=== PATIENT | female | born 1945 | race Hispanic/Latino ===

== ENCOUNTER → 2017-04-05 | Outpatient (CLI) | payer OTHER | END | disposition home or self-care (01) | LOC: RAH 11:07 | PROVIDERS: ATTEND Family Medicine | DX: Z12.31 Encounter for screening mammogram for malignant neoplasm of breast (principal) | CPT/HCPCS: 77067 ==

== ENCOUNTER → 2018-08-20 | Outpatient (CLI) | payer OTHER | END | disposition home or self-care (01) | LOC: RAH 15:07 | PROVIDERS: ATTEND Family Medicine | DX: Z12.31 Encounter for screening mammogram for malignant neoplasm of breast (principal) | CPT/HCPCS: 77067 ==

== ENCOUNTER → 2019-09-19 | Outpatient (CLI) | payer OTHER ==
[~2019-09-19] MED LIST: IOHEXOL 350 MG/ML 100ML INFUS..BTL IV ONE
== END | disposition home or self-care (01) ==
LOC: RAH 08:18
PROVIDERS: ATTEND Family Medicine
DX: R10.9 Unspecified abdominal pain (principal); J98.11 Atelectasis; K40.20 Bilateral inguinal hernia, without obstruction or gangrene, not specified as recurrent; I70.90 Unspecified atherosclerosis
CPT/HCPCS: 74178; Q9967

== ENCOUNTER → 2019-12-18 | Outpatient (CLI) | payer OTHER | END | disposition home or self-care (01) | LOC: RAH 08:14 | PROVIDERS: ATTEND Family Medicine | DX: Z12.31 Encounter for screening mammogram for malignant neoplasm of breast (principal) | CPT/HCPCS: 77067 ==

== ENCOUNTER 2021-08-04 20:45 | Emergency (ER) | payer MEDICARE ==
[2021-08-04 22:22] VITALS: BP 156/94
[2021-08-04] MEDS ORDERED: LORAZEPAM 2 MG/ML 1 ML VIAL IVP ONE (22:30)
== END 2021-08-04 23:57 | disposition home or self-care (01) ==
LOC: EDH 20:45
DX: S16.1XXA Strain of muscle, fascia and tendon at neck level, initial encounter (principal); E11.9 Type 2 diabetes mellitus without complications; F41.9 Anxiety disorder, unspecified; I10 Essential (primary) hypertension; Z88.0 Allergy status to penicillin; X58.XXXA Exposure to other specified factors, initial encounter; Y93.89 Activity, other specified; Y92.89 Other specified places as the place of occurrence of the external cause; Y99.8 Other external cause status
CPT/HCPCS: 84484; 93005; 96374; 99284; J2060

== ENCOUNTER → 2022-05-09 | Outpatient (CLI) | payer MEDICARE | END | disposition home or self-care (01) | LOC: RAH 14:41 | PROVIDERS: ATTEND Family Medicine | DX: Z12.31 Encounter for screening mammogram for malignant neoplasm of breast (principal) | CPT/HCPCS: 77067 ==

== ENCOUNTER 2022-10-11 10:20 | Emergency (ER) | payer MEDICARE ==
[~2022-10-11] VITALS: Ht 149.9 cm; Wt 81.6 kg
[2022-10-11 11:21] LABS: HEMATOCRIT 40.1 % (36-48); MEAN CORPUSCULAR HEMOGLOBIN 30.4 pg (27.0-33.0); MEAN CORPUSCULAR HGB CONC 33.9 g/dL (32.0-36.0); MEAN CORPUSCULAR VOLUME 89.7 fL (79-99); PLATELET COUNT (AUTO) 208 K/uL (130-400); RED BLOOD CELL COUNT(AUTO) 4.47 MIL/uL (4.00-5.50); RED CELL DISTRIBUTION WIDTH 13.2 % (11.0-15.5); WHITE BLOOD COUNT (AUTO) 5.9 K/uL (4.8-10.8)
[2022-10-11 11:32] LABS: CREATININE 0.9 mg/dL (0.5-1.5); POTASSIUM 3.9 mmol/L (3.5-5.1)
[2022-10-11 11:36] LABS: ALBUMIN 3.7 g/dL (3.5-5.0); BILIRUBIN,TOTAL 0.6 mg/dL (0.2-1.0); TOTAL PROTEIN, SERUM 7.4 g/dL (6.0-8.3)
[2022-10-11 11:47] LABS: BAND NEUTROPHILS % (MANUAL) 1 % (0-2); BASOPHILS % (MANUAL) 4 % (0-2); EOSINOPHILS % (MANUAL) 6 % (1-6); LYMPHOCYTES % (MANUAL) 40 % (22-44); MAN.DIFF COMMENT-IMPRESSION MANUAL DIFFERENTIAL; MONOCYTES % (MANUAL) 6 % (2-9); PLATELET MORPHOLOGY COMMENT ADEQUATE; SEGMENTED NEUTROPHILS % 43 % (40-70); TOTAL CELLS COUNTED 100; WBC MORPHOLOGY CONSISTENT W/DIFF
[2022-10-11] MEDS ORDERED: CYCLOBENZAPRINE HCL 10 MG TABLET PO ONE (13:30)
[2022-10-11] MEDS ORDERED: ACETAMINOPHEN 500 MG TABLET PO ONE (13:30)
[2022-10-11 14:01] VITALS: BP 162/82; PULSE 72; RESP 16; O2SAT 98
[2022-10-11 14:52] LABS: APPEARANCE,URINE CLOUDY (CLEAR); BILIRUBIN,URINE NEGATIVE (NEGATIVE); COLOR,URINE LIGHT-YELLOW (YELLOW); GLUCOSE, URINE (UA) NEGATIVE (NEGATIVE); KETONES,URINE NEGATIVE (NEGATIVE); LEUKOCYTE ESTERASE ,URINE 25 Leu/uL (NEGATIVE); NITRATE,URINE NEGATIVE (NEGATIVE); OCCULT BLOOD,URINE NEGATIVE (NEGATIVE); PH,URINE 6.5 (5.0-8.0); PROTEIN,URINE NEGATIVE (NEGATIVE); UROBILINOGEN,URINE 0.2 mg/dL (0.2-1.0)
[2022-10-11 14:53] LABS: ADD UA MICROSCOPIC YES
[2022-10-11 15:09] LABS: BACTERIA,URINE MOD /HPF (None Seen); MUCUS,URINE FEW LPF (None Seen); SQUAMOUS EPITHELIAL CELL,UR MANY /HPF (0-2)
[2022-10-11] MEDS ORDERED: SULF1TAB42 PO (15:26)
[2022-10-11] MEDS ORDERED: CYCL10TA16 PO (15:47)
== END 2022-10-11 15:54 | disposition home or self-care (01) ==
LOC: EDH 10:20
DX: N39.0 Urinary tract infection, site not specified (principal); I10 Essential (primary) hypertension; E78.00 Pure hypercholesterolemia, unspecified; Z88.0 Allergy status to penicillin; Z90.49 Acquired absence of other specified parts of digestive tract
CPT/HCPCS: 36415; 80053; 81001; 84484; 85025; 87077; 87088; 87186; 93005

== ENCOUNTER → 2023-02-13 | Outpatient (CLI) | payer MEDICARE ==
[~2023-02-13] MED LIST changes: +CYCL10TA16 PO; -IOHEXOL 350 MG/ML 100ML INFUS..BTL IV ONE; +SULF1TAB42 PO
[2023-02-13 15:48] LABS: BASOPHILS # (AUTO) 0.06 K/uL (0.00-0.20); BASOPHILS % (AUTO) 0.7 % (0.0-5.0); EOSINOPHILS # (AUTO) 0.19 K/uL (0.00-0.70); EOSINOPHILS % (AUTO) 2.3 % (0.0-8.0); HEMATOCRIT 39.3 % (36-48); IMMATURE GRANULOCYTE ABSOLUTE 0.03 K/uL (0-1); LYMPHOCYTES # (AUTO) 1.9 K/uL (1.0-4.8); LYMPHOCYTES % (AUTO) 23.4 % (21.0-51.0); MEAN CORPUSCULAR HEMOGLOBIN 30.6 pg (27.0-33.0); MEAN CORPUSCULAR HGB CONC 32.8 g/dL (32.0-36.0); MEAN CORPUSCULAR VOLUME 93.1 fL (79-99); MONOCYTES # (AUTO) 0.7 K/uL (0.1-1.0); MONOCYTES % (AUTO) 8.8 % (3.0-13.0); NEUTROPHILS # (AUTO) 5.3 K/uL (1.8-7.7); NEUTROPHILS % (AUTO) 64.4 % (40.0-77.0); PLATELET COUNT (AUTO) 222 K/uL (130-400); RED BLOOD CELL COUNT(AUTO) 4.22 MIL/uL (4.00-5.50); RED CELL DISTRIBUTION WIDTH 12.8 % (11.0-15.5); WHITE BLOOD COUNT (AUTO) 8.2 K/uL (4.8-10.8)
[2023-02-13 16:03] LABS: ALBUMIN 3.3 g/dL (3.5-5.0); BILIRUBIN,TOTAL 0.4 mg/dL (0.2-1.0); TOTAL PROTEIN, SERUM 7.2 g/dL (6.0-8.3)
== END | disposition home or self-care (01) ==
LOC: LAB 15:00
PROVIDERS: ATTEND Internal Medicine Gastroenterology
DX: R10.32 Left lower quadrant pain (principal)
CPT/HCPCS: 36415; 80053; 85025

== ENCOUNTER → 2023-02-16 | Outpatient (CLI) | payer MEDICARE ==
[~2023-02-16] MED LIST changes: +IOHEXOL-350 75 ML VIAL IV ONE
== END | disposition home or self-care (01) ==
LOC: RAH 08:05
PROVIDERS: ATTEND Internal Medicine Gastroenterology
DX: K40.20 Bilateral inguinal hernia, without obstruction or gangrene, not specified as recurrent (principal); R10.32 Left lower quadrant pain; K57.90 Diverticulosis of intestine, part unspecified, without perforation or abscess without bleeding; N85.8 Other specified noninflammatory disorders of uterus; M47.815 Spondylosis without myelopathy or radiculopathy, thoracolumbar region; I70.90 Unspecified atherosclerosis
CPT/HCPCS: 74178; Q9967

== ENCOUNTER 2023-05-08 07:12 | Day surgery (SDC) | payer MEDICARE ==
[2023-05-04 15:49] LABS: BASOPHILS # (AUTO) 0.06 K/uL (0.00-0.20); BASOPHILS % (AUTO) 0.8 % (0.0-5.0); EOSINOPHILS # (AUTO) 0.25 K/uL (0.00-0.70); EOSINOPHILS % (AUTO) 3.5 % (0.0-8.0); HEMATOCRIT 40.3 % (36-48); IMMATURE GRANULOCYTE ABSOLUTE 0.02 K/uL (0-1); LYMPHOCYTES # (AUTO) 2.4 K/uL (1.0-4.8); MEAN CORPUSCULAR HEMOGLOBIN 30.6 pg (27.0-33.0); MEAN CORPUSCULAR VOLUME 92.6 fL (79-99); MONOCYTES # (AUTO) 0.6 K/uL (0.1-1.0); MONOCYTES % (AUTO) 8.1 % (3.0-13.0); NEUTROPHILS # (AUTO) 3.9 K/uL (1.8-7.7); NEUTROPHILS % (AUTO) 54.3 % (40.0-77.0); PLATELET COUNT (AUTO) 204 K/uL (130-400); RED BLOOD CELL COUNT(AUTO) 4.35 MIL/uL (4.00-5.50); RED CELL DISTRIBUTION WIDTH 12.7 % (11.0-15.5); WHITE BLOOD COUNT (AUTO) 7.1 K/uL (4.8-10.8)
[2023-05-04 16:02] VITALS: BP 154/80; PULSE 84; RESP 15
[2023-05-04 16:14] LABS: CREATININE 0.9 mg/dL (0.5-1.5); POTASSIUM 3.8 mmol/L (3.5-5.1)
[2023-05-08] VITALS (21 sets, daily range): BP systolic 100–139; BP diastolic 54–81; PULSE 64–80; RESP 11–19
[~2023-05-08] VITALS: Ht 152.4 cm; Wt 83.9 kg
[~2023-05-08 07:12] MED LIST changes: +0.9%NACL 1000ML 1,000 ML IV SCH; +AMLO-257 PO; +ATOR40TA69 PO; +CITA10TA89 PO; +CLINDAMYCIN IVPB 900MG/50ML 50 ML IV SCH; +CLON0.5T4 PO; -CYCL10TA16 PO; -IOHEXOL-350 75 ML VIAL IV ONE; +LOSA50TA64 PO; +METF-444 PO; -SULF1TAB42 PO
[2023-05-08] MEDS: CLINDAMYCIN IVPB 900MG/50ML 50 ML IV ONE (08:19)
[2023-05-08] MEDS: 0.9%NACL 1000ML 1,000 ML IV ONE (08:20)
[2023-05-08] MEDS ORDERED: ONDANSETRON 4MG INJ ONE (09:10)
[2023-05-08] MEDS ORDERED: PROPOFOL 10 MG/ML 20ML VIAL IV ONE (09:10)
[2023-05-08] MEDS ORDERED: ROCURONIUM BROMIDE 10MG/1ML 5ML VL ONE ×2 (09:11→10:28)
[2023-05-08] MEDS ORDERED: MIDAZOLAM HCL 1 MG/ML 2ML VIAL ONE (09:11)
[2023-05-08] MEDS ORDERED: FENTANYL CITRATE PF 50 MCG/1 ML 2ML VIAL ONE (09:11)
[2023-05-08] MEDS ORDERED: BUPIVACAINE/PF 0.25% 10ML VIAL IJ ONE (09:16)
[2023-05-08] MEDS ORDERED: LIDOCAINE HCL 1% 20 ML VIAL ONE (09:16)
[2023-05-08] MEDS ORDERED: BUPIVACAINE/PF 0.25% 30ML VIAL IJ ONE (09:17)
[2023-05-08] MEDS ORDERED: DEXAMETHASONE SOD PHOSPHATE 10MG/ML 1ML VIAL ONE (09:26)
[2023-05-08] MEDS ORDERED: PHENYLEPHRINE HCL 10 MG/ML 1ML VIAL IV ONE ×2 (10:22→10:25)
[2023-05-08] MEDS ORDERED: EPHEDRINE SULFATE 50 MG/ML AMPULE ONE (10:50)
[2023-05-08] MEDS ORDERED: NEOSTIGMINE METHYLSULFATE 1MG/ML IV ONE (11:29)
[2023-05-08] MEDS ORDERED: GLYCOPYRROLATE 0.2 MG/ML 5 ML VIAL ONE (11:29)
[2023-05-08] MEDS: ONDANSETRON 4MG INJ ONE (13:32)
[2023-05-08] MEDS: ACETAMINOPHEN 1,000 MG/100 ML VIAL IV ONE (13:32)
[2023-05-08] MEDS: MEPERIDINE-PF 25 MG/ML SYG ONE (13:32)
== END 2023-05-08 15:20 | disposition home or self-care (01) ==
LOC: DAH 07:12
PROVIDERS: ATTEND Surgery
DX: K40.20 Bilateral inguinal hernia, without obstruction or gangrene, not specified as recurrent (principal); R93.89 Abnormal findings on diagnostic imaging of other specified body structures; K42.9 Umbilical hernia without obstruction or gangrene; C54.1 Malignant neoplasm of endometrium; I10 Essential (primary) hypertension; E66.01 Morbid (severe) obesity due to excess calories; F41.9 Anxiety disorder, unspecified; K21.9 Gastro-esophageal reflux disease without esophagitis; K31.84 Gastroparesis; E78.00 Pure hypercholesterolemia, unspecified; E11.43 Type 2 diabetes mellitus with diabetic autonomic (poly)neuropathy; Z88.0 Allergy status to penicillin; Z91.013 Allergy to seafood; Z90.49 Acquired absence of other specified parts of digestive tract; Z98.49 Cataract extraction status, unspecified eye; Z98.890 Other specified postprocedural states; Z68.37 Body mass index [BMI] 37.0-37.9, adult; Z82.49 Family history of ischemic heart disease and other diseases of the circulatory system; Z79.899 Other long term (current) drug therapy
CPT/HCPCS: 80048; 85025; 36415; 93005; 49650; 49593; 64488; 58120; 82948; 88302; 88305; A4663; J7030 ×2; A4452; A4344; A4215 ×2; J3010; J1100; J3490 ×5; J2250; J2704; J2405 ×2; J2710; J2175; J2371 ×2; C1769; C1781 ×2; A4930; A4223; A4222; A4221; A4600; J0665

== ENCOUNTER 2024-04-20 07:27 | Emergency (ER) | payer MEDICARE ==
[~2024-04-20] VITALS: Ht 152.4 cm; Wt 82.1 kg
[~2024-04-20 07:27] MED LIST changes: -0.9%NACL 1000ML 1,000 ML IV SCH; -CLINDAMYCIN IVPB 900MG/50ML 50 ML IV SCH
--- NOTE | 2024-04-20 08:08 | ERN ---
ED Note History of Present Illness Stated Complaint: HEADACHE Chief Complaint: Headache Time Seen by MD: 07:30 Dictation: 78-year-old female with a past medical history of hypertension, hyperlipidemia prediabetes who presented to the ER complaining of headache x3 days. Stated that she has been seen at her PCP yesterday and was told to take [id number] pain medication. Today patient presented to the ER complaining of headache that has not been resolved with xmeg-hse-[id number] pain medication. Allergies: Coded Allergies: Fish Containing Products (Unverified Allergy, Unknown, 05/04/23) Penicillins (Unverified Allergy, Unknown, 08/04/21) Home Meds Reported Medications Metformin HCl (Metformin HCl) 500 Mg Tablet, 500 MG PO BID, TAB 05/05/23 Atorvastatin Calcium (LIPITOR) 40 Mg Tablet, 40 MG PO HS, TAB 05/05/23 Citalopram Hydrobromide (Citalopram HBr) 10 Mg Tablet, 10 MG PO BID, TAB 05/05/23 Amlodipine Besylate (Amlodipine Besylate) 5 Mg Tablet, 5 MG PO HS, TAB 05/05/23 Clonazepam (Clonazepam) 0.5 Mg Tablet, 0.5 MG PO DAILY, TAB 05/05/23 Losartan Potassium (Losartan Potassium) 50 Mg Tablet, 50 MG PO HS, TAB 05/05/23 Past Medical History Past Medical History: Anxiety, Diabetes-Type II, High Cholesterol, Hypertension Surgical History: Other Review of System Dictation NEGATIVE EXCEPT PER HPI Constitutional: Negative for fever,chills, and weight loss Eyes: Negative for injury, pain,redness, and discharge ENT: Negative for injury,pain or swelling Cardiovascular: denies chest pain, palpitations, and edema Respiratory: Negative for shortness of breath, cough, and wheezing, Abdomen/GI: Negative for abdominal pain, nausea, vomiting, diarrhea, and constipation Back: Negative for injury and pain : Negative for injury, bleeding and discharge MS/Extremity: Negative for injury and deformity Skin: Negative for rash, and discoloration Neuro: Severe headache Psych: Negative for suicide ideation, homicidal ideation, and hallucinations Initial Vital Sign VS Vital Signs Date Time Temp Pulse Resp B/P (MAP) Pulse Ox O2 Delivery O2 Flow Rate FiO2 04/20/24 07:29 98.2 84 18 159/80 98 Room Air 0 04/20/24 07:42 21 Physical Exam Dictation General: awake, alert, NAD Head/Face: Normocephalic, atraumatic Eyes: PERRL, EOMI, vision at baseline ENT: oral cavity clear, TMs clear, no signs of infection Neck: Trachea midline, supple, no nuchal rigidity Cardiovascular: RRR, normal S1/S2, No MRGs, no JVD Respiratory: CTAB, no respiratory distress, No rales or wheezes Abdomen: Soft , no tender Skin: Warm, dry, normal turgor, no rash MS/Extremity: Pulses equal, no cyanosis, neurovascular intact, FROM Neuro: COAx4, GCS 15, strength 5/5, CN 2-12 intact, normal cerebellar exam, normal gait, Psych: Normal behavior, mood, and affect normal Results (Laboratory/Radiology) Laboratory/Radiology Laboratory Tests Test 04/20/24 07:59 04/20/24 08:21 White Blood Count 7.2 K/uL (4.8-10.8) Red Blood Count 4.66 MIL/uL (4.00-5.50) Hemoglobin 14.4 g/dL (12.0-16.0) Hematocrit 40.8 % (36-48) Mean Corpuscular Volume 87.6 fL (79-99) Mean Corpuscular Hemoglobin 30.9 pg (27.0-33.0) Mean Corpuscular Hemoglobin Concent 35.3 g/dL (32.0-36.0) Red Cell Distribution Width 13.1 % (11.0-15.5) Platelet Count 216 K/uL (130-400) Mean Platelet Volume 11.9 fL (7.5-10.5) H Immature Granulocyte % (Auto) 0.4 % (0-1) Neutrophils (%) (Auto) 42.0 % (40.0-77.0) Lymphocytes (%) (Auto) 45.7 % (21.0-51.0) Monocytes (%) (Auto) 9.4 % (3.0-13.0) Eosinophils (%) (Auto) 1.8 % (0.0-8.0) Basophils (%) (Auto) 0.7 % (0.0-5.0) Neutrophils # (Auto) 3.0 K/uL (1.8-7.7) Lymphocytes # (Auto) 3.3 K/uL (1.0-4.8) Monocytes # (Auto) 0.7 K/uL (0.1-1.0) Eosinophils # (Auto) 0.13 K/uL (0.00-0.70) Basophils # (Auto) 0.05 K/uL (0.00-0.20) Absolute Immature Granulocyte (auto 0.03 K/uL (0-1) Nucleated Red Blood Cells 0.0 % (0.0-0.19) Sodium Level 140 mmol/L (136-145) Potassium Level 3.0 mmol/L (3.5-5.1) *L Chloride Level 103 mmol/L (101-111) Carbon Dioxide Level 28 mmol/L (21-32) Blood Urea Nitrogen 18 mg/dL (7-18) Creatinine 1.0 mg/dL (0.5-1.0) Glomerular Filtration Rate Calc 58 mL/min (>90) Random Glucose 106 mg/dL (70-105) H Total Calcium 8.6 mg/dL (8.5-10.1) Troponin I High Sensitivity 25 ng/L (4-50) Troponin I < 0.05 ng/mL (0.00-0.05) ED Course ED Course Orders Procedure Category Date Status Time Ct Head/Brain W/O CT 04/20/24 Resulted Contrast 07:45 Cbc With Differential LAB 04/20/24 Complete 07:46 Basic Metabolic Panel LAB 04/20/24 Complete 07:46 Troponin I High LAB 04/20/24 Complete Sensitivity 07:46 Troponin Poc Order LAB 04/20/24 Complete Only 07:46 12 Lead Ekg Tracing- EKG 04/20/24 Logged Technical 07:46 Diphenhydramine Hcl PHA 04/20/24 Complete (Benadryl Inj) 08:00 Ketorolac PHA 04/20/24 Complete Tromethamine 15mg/Ml 08:00 Metoclopramide 10 PHA 04/20/24 Complete Mg/2 Ml Vial (Reglan 1 08:00 Potassium Chloride PHA 04/20/24 In Process 10meq Sr (K-Dur 10meq 10:00 Potassium Chloride PHA 04/21/24 In Process 20meq Er (K-Dur/Klor- 09:00 Current Medications Medications (Trade) Dose Ordered Sig/Se Route PRN Reason Start Time Stop Time Status Last Admin Dose Admin Diphenhydramine HCl (BENAdryl INJ) 25 mg ONCE ONCE IV 04/20/24 08:00 04/20/24 08:01 DC 04/20/24 08:39 Ketorolac Tromethamine (toRADol) 15 mg ONCE ONCE IV 04/20/24 08:00 04/20/24 08:01 DC 04/20/24 08:39 Metoclopramide HCl (regLAN 10MG IV) 10 mg ONCE ONCE IVP 04/20/24 08:00 04/20/24 08:01 DC 04/20/24 08:39 Potassium Chloride (K-Dur 10meq Sr Tab) 20 meq ONCE ONCE PO 04/20/24 10:00 04/20/24 10:01 04/20/24 09:56 Potassium Chloride (K-Dur/Klor-Con 20meq) 20 meq DAILY PO 04/21/24 09:00 05/21/24 08:59 Vital Signs Date Time Temp Pulse Resp B/P (MAP) Pulse Ox O2 Delivery O2 Flow Rate FiO2 04/20/24 09:32 97.9 71 18 147/85 99 Room Air* 0 21 04/20/24 07:42 98.2 76 18 159/80 98 Room Air* 0 21 04/20/24 07:29 98.2 84 18 159/80 98 Room Air 0 Medical Decision Making MDM 78-year-old female with past medical history of hypertension, prediabetes, hyperlipidemia. He presents to the ER complaining of headache 3 days. Headache is localized in the frontal area bilateral, not responding for rjfc-kek-[id number] medication. Patient also mentioned that she was seen yesterday at [facility] for a left side chest pain. MDM Tension headache Migraine Intracranial bleeding Uncontrolled hypertension causing headache Chest pain Ordered the pain medication. EKG Troponin CT of head without contrast ---> within normal limits Laboratory: Potassium level 3--> it was replace it with oral potassium Patient was evaluated at bedside, states that headache has improved. Plan is to discharge patient home with recommended to follow up with the PCP as outpatient. DX & DISP Disposition: Discharge Departure Impression: Primary Impression: Hypertension Additional Impressions: Head ache, Hypokalemia Condition: Stable Scripts Acetaminophen (Tylenol) 500 Mg Tab 1 TAB PO Q6HPRN PRN for pain or fever for 15 Days, #30 TAB 0 Refills Prov: CHRISS CARTWRIGHT MD 04/20/24 Ibuprofen (Ibuprofen) 600 Mg Tablet 1 TAB PO TID for pain for 10 Days, #30 TAB 0 Refills with food Prov: CHRISS CARTWRIGHT MD 04/20/24 Additional Instructions: RETURN TO ER FOR ANY ACUTE OR WORSENING SYMPTOMS. FOLLOW-UP IN 1-2 DAYS WITH PRIMARY PROVIDER FOR RECHECK OF TODAY'S SYMPTOMS. Referrals: LAUREN JOHNSTON (PCP) Time of Disposition: 10:01 CHRISS CARTWRIGHT MD Apr 20, 2024 08:08
[2024-04-20 08:27] LABS: BASOPHILS # (AUTO) 0.05 K/uL (0.00-0.20); BASOPHILS % (AUTO) 0.7 % (0.0-5.0); EOSINOPHILS # (AUTO) 0.13 K/uL (0.00-0.70); EOSINOPHILS % (AUTO) 1.8 % (0.0-8.0); HEMATOCRIT 40.8 % (36-48); IMMATURE GRANULOCYTE ABSOLUTE 0.03 K/uL (0-1); LYMPHOCYTES # (AUTO) 3.3 K/uL (1.0-4.8); LYMPHOCYTES % (AUTO) 45.7 % (21.0-51.0); MEAN CORPUSCULAR HEMOGLOBIN 30.9 pg (27.0-33.0); MEAN CORPUSCULAR HGB CONC 35.3 g/dL (32.0-36.0); MEAN CORPUSCULAR VOLUME 87.6 fL (79-99); MONOCYTES # (AUTO) 0.7 K/uL (0.1-1.0); MONOCYTES % (AUTO) 9.4 % (3.0-13.0); PLATELET COUNT (AUTO) 216 K/uL (130-400); RED BLOOD CELL COUNT(AUTO) 4.66 MIL/uL (4.00-5.50); RED CELL DISTRIBUTION WIDTH 13.1 % (11.0-15.5); WHITE BLOOD COUNT (AUTO) 7.2 K/uL (4.8-10.8)
--- NOTE | 2024-04-20 08:29 | HMCIMG ---
CT HEAD WITHOUT CONTRAST INDICATION: Severe headache TECHNIQUE: Noncontrast axial helical CT images from the vertex through the skull base using 5 mm slice thickness without contrast material. CT was performed with one or more of the following dose reduction techniques: Automated exposure control, adjustment of the mA and/or kV according to patient size, or use of iterative reconstruction technique. COMPARISON: None FINDINGS: The cerebral and cerebellar hemispheres are age-appropriate in appearance. No evidence for abnormal extra-axial fluid collections or masses. The ventricles and sulci are normal in size and configuration. No evidence for intracranial parenchymal, epidural, or subdural hemorrhage, mass effect or midline shift. The melgar-white matter differentiation is well preserved. No secondary evidence to suggest acute ischemia. Trace calcific plaque is present along the issa of the cavernous segments of both internal carotid arteries. The brainstem and cerebellum appear normal. The visualized orbits appear unremarkable. The visible paranasal sinuses and mastoid air cells are clear. The calvarium appears normal. IMPRESSION: No acute intracranial process identified.
[2024-04-20] MEDS: ketOROlac 15MG/ML VIAL (15MG/ML) IV ONE (08:39)
[2024-04-20] MEDS: metoCLOPRAmide 10 MG/2 ML VIAL IVP ONE (08:39)
[2024-04-20] MEDS: DiphenhydrAMINE HCL 50 MG/ML VIAL IV ONE (08:39)
[2024-04-20] MEDS: PoTASSium chloRIDE 10MEQ SR 10 MEQ/TAB TAB.SR.24H PO ONE (09:56)
[2024-04-20] MEDS ORDERED: ACET-66 PO (10:03)
[2024-04-20] MEDS ORDERED: IBUP-2070 PO (10:03)
[2024-04-20 10:31] VITALS: BP 138/81; PULSE 67; RESP 16; TEMP 97.8; O2SAT 98
--- NOTE | 2024-04-20 17:49 | EKG ---
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
[2024-04-21] MEDS ORDERED: PoTASSium chloRIDE 20MEQ ER 20 MEQ ERTAB PO SCH (09:00)
== END 2024-04-20 10:35 | disposition home or self-care (01) ==
LOC: EDH 07:27
DX: R51.9 Headache, unspecified (principal); I10 Essential (primary) hypertension; E87.6 Hypokalemia; E11.9 Type 2 diabetes mellitus without complications; E78.00 Pure hypercholesterolemia, unspecified; F41.9 Anxiety disorder, unspecified; Z79.84 Long term (current) use of oral hypoglycemic drugs; Z79.899 Other long term (current) drug therapy; Z88.0 Allergy status to penicillin; Z98.890 Other specified postprocedural states
CPT/HCPCS: 99285; 96374; 70450; 96375; 84484 ×2; 80048; 85025; 36415; 93005; J1885; J1200; J2765